=== PATIENT | female | born 1960 | race African-American/Black ===

== ENCOUNTER 2016-08-20 19:26 | Emergency (ER) | payer MEDICAID ==
[~2016-08-20] VITALS: Ht 160 cm; Wt 77.1 kg
[~2016-08-20 19:26] MED LIST: AMIT10TA6 PO; BACL20TA PO; COLC1TAB3 PO; COSO10 EACHEYE; GAB400C PO; GLIP-115 PO; HYDR-3546 OR; HYDR500T13 PO; INSUINJ37 SC; LANTAPROST EACHEYE; LISI-646 PO; LORA-622 PO; MET50T PO; PANT1INJ3 PO; SIMV-13 PO; SITA50TA PO; TRIATAB3 PO
[2016-08-20 20:44] LABS: Urine Bilirubin Negative (Negative); Urine Blood Negative /uL (Negative); Urine Color Yellow (Yellow); Urine Glucose Normal (Normal); Urine Hyaline Cast MOD /lpf (0 - 2); Urine Ketone Negative (Negative); Urine Mucus FEW (None Seen); Urine Nitrite Negative (Negative); Urine RBC 1 /hpf (0 - 4); Urine Squamous Epithelial Cell FEW /hpf (<5); Urine pH 5.5 (5.0-8.0)
[2016-08-21 03:33] LABS: Basophils # (auto) 0 uL; Basophils % (auto) 0.9 % (0.0-2.0); CONDITION AutoValidated; Eosinophils # (auto) 0.1 uL; Eosinophils % (auto) 1.9 % (0.0-7.0); Hematocrit 35.3 % (36.0-46.0); Hemoglobin 11.5 g/dL (12.2-16.2); Lymphocytes # (auto) 1.7 uL; Lymphocytes % (auto) 35.8 % (10.0-50.0); Mean Corpuscular Hemoglobin 27.1 pg (28.0-32.0); Mean Corpuscular Hgb Conc. 32.6 g/dL (32.0-36.0); Mean Corpuscular Volume 83.1 fL (80.0-100.0); Mean Platelet Volume 9.3 fL (7.4-10.4); Monocytes # (auto) 0.5 uL; Monocytes % (auto) 10.2 % (0.0-12.0); Neutrophils # (auto) 2.4 uL; Neutrophils % (auto) 51.2 % (37.0-80.0); Platelet Count (auto) 268 10^3/uL (140-450); Red Cell Distribution Width 13.5 % (11.6-16.0); White Blood Cell 4.7 10^3/uL (4.4-10.8)
[2016-08-21 03:53] LABS: Albumin 4.5 g/dL (3.4-5.0); BUN/Creatinine Ratio 19.5; Calcium 9.4 mg/dL (8.5-10.1); Potassium 4.2 mmol/L (3.5-5.1)
[2016-08-21 03:56] LABS: Bilirubin, Total 0.5 mg/dL (0.2-1.0); Total Protein 8.5 g/dL (6.4-8.2)
[2016-08-21] MEDS ORDERED: HYDROcodone-ACET 5/325MG TAB PO ONE (04:00)
[2016-08-21] MEDS ORDERED: cefTRIAXone 1GM/50ML D5W 50 ML IV ONE (04:00)
[2016-08-21] MEDS ORDERED: SODIUM CHLORIDE 0.9% 1,000 ML IV ONE (04:00)
[2016-08-21 06:13] VITALS: BP 119/84
== END 2016-08-21 06:17 | disposition home or self-care (01) ==
LOC: ER 19:26
DX: N12 Tubulo-interstitial nephritis, not specified as acute or chronic (principal); E11.9 Type 2 diabetes mellitus without complications; K21.9 Gastro-esophageal reflux disease without esophagitis; E78.5 Hyperlipidemia, unspecified; G89.29 Other chronic pain; M54.9 Dorsalgia, unspecified; I10 Essential (primary) hypertension; N83.209 Unspecified ovarian cyst, unspecified side; Z98.51 Tubal ligation status; Z79.899 Other long term (current) drug therapy; Z79.4 Long term (current) use of insulin
CPT/HCPCS: 36415; 74176; 80053; 81001; 82962; 85025; 96365; 96366; 99285; J0696; J7030

== ENCOUNTER 2016-10-13 15:29 | Emergency (ER) | payer MEDICAID ==
[~2016-10-13] VITALS: Ht 160 cm; Wt 74.8 kg
[2016-10-13 16:03] VITALS: BP 131/82
[2016-10-13] MEDS ORDERED: KETOROLAC TROMETH 60MG/2ML VIAL IM ONE (16:30)
[2016-10-13] MEDS ORDERED: METHOCARBAMOL 500 MG TAB PO ONE (16:30)
== END 2016-10-13 17:09 | disposition home or self-care (01) ==
LOC: ER 15:31
DX: G89.29 Other chronic pain (principal); M54.2 Cervicalgia; M54.5 Low back pain; E11.9 Type 2 diabetes mellitus without complications; K21.9 Gastro-esophageal reflux disease without esophagitis; E78.5 Hyperlipidemia, unspecified; I10 Essential (primary) hypertension; Z79.4 Long term (current) use of insulin; Z79.899 Other long term (current) drug therapy; Z98.51 Tubal ligation status
CPT/HCPCS: 96372; 99283; J1885

== ENCOUNTER 2017-03-05 11:05 | Emergency (ER) | payer MEDICAID ==
[~2017-03-05] VITALS: Ht 160 cm; Wt 74.8 kg
[2017-03-05 12:24] VITALS: BP 125/83
== END 2017-03-05 13:10 | disposition home or self-care (01) ==
LOC: ER 11:05
DX: J03.90 Acute tonsillitis, unspecified (principal); H66.93 Otitis media, unspecified, bilateral; E11.9 Type 2 diabetes mellitus without complications; I10 Essential (primary) hypertension; E78.5 Hyperlipidemia, unspecified; K21.9 Gastro-esophageal reflux disease without esophagitis; N83.299 Other ovarian cyst, unspecified side; Z98.51 Tubal ligation status; Z79.899 Other long term (current) drug therapy

== ENCOUNTER 2017-11-15 18:24 | Inpatient (IN) | payer MEDICAID ==
[~2017-11-15] VITALS: Ht 160 cm; Wt 77.1 kg
[2017-11-15 19:34] LABS: Basophils # (auto) 0.1 uL; Basophils % (auto) 1.3 % (0.0-2.0); Eosinophils # (auto) 0.1 uL; Eosinophils % (auto) 2.6 % (0.0-7.0); Hematocrit 35.8 % (36.0-46.0); Hemoglobin 11.7 g/dL (12.2-16.2); Lymphocytes # (auto) 1.7 uL; Lymphocytes % (auto) 39.7 % (10.0-50.0); Mean Corpuscular Hemoglobin 27.2 pg (28.0-32.0); Mean Corpuscular Hgb Conc. 32.6 g/dL (32.0-36.0); Mean Corpuscular Volume 83.4 fL (80.0-100.0); Monocytes # (auto) 0.5 uL; Monocytes % (auto) 11.6 % (0.0-12.0); Neutrophils % (auto) 44.8 % (37.0-80.0); Nucleated Red Blood Cells % 0.1 %; Platelet Count (auto) 236 10^3/uL (140-450); Red Blood Cells 4.29 10^6/uL (4.0-5.20); Red Cell Distribution Width 14.5 % (11.8-14.3); White Blood Cell 4.4 10^3/uL (4.4-10.8)
[2017-11-15 19:48] LABS: Alanine Aminotransferase 47 U/L (13-56); Albumin 4.1 g/dL (3.4-5.0); Anion Gap 8 (5-15); Aspartate Aminotransferase 21 U/L (15-37); BUN/Creatinine Ratio 16.9; Blood Urea Nitrogen 31 mg/dL (7-18); Calcium 8.7 mg/dL (8.5-10.1); Carbon Dioxide 23 mmol/L (21-32); Chloride 111 mmol/L (98-107); GFR African American 37 mL/min; GFR Non-African American 30 mL/min; Glucose 81 mg/dL (74-106); Potassium 4.3 mmol/L (3.5-5.1); Sodium 142 mmol/L (136-145)
[2017-11-15 19:53] LABS: Alkaline Phosphatase 102 U/L (45-117); Bilirubin, Total 0.5 mg/dL (0.2-1.0); Total Protein 8.2 g/dL (6.4-8.2)
[2017-11-15] MEDS ORDERED: ASPirin 81 mg TAB PO ONE (21:45)
[2017-11-16] MEDS ORDERED: NITROGLYCERIN 0.4 MG SL TAB SL ONE (00:30)
[2017-11-16] MEDS ORDERED: ONDANSETRON HCL 4 MG/2 ML VIAL IV ONE (00:30)
[2017-11-16] MEDS ORDERED: MORPHINE SULFATE 4 MG/ML SYR/VIAL IV ONE (00:30)
[2017-11-16] MEDS ORDERED: ACETAMINOPHEN 325 MG TAB PO PRN (03:15)
[2017-11-16] MEDS ORDERED: DEXTROSE (50%) 50ML SYRG IV PRN (03:15)
[2017-11-16] MEDS ORDERED: NITROGLYCERIN 0.4 MG SL TAB SL PRN (03:15)
[2017-11-16] MEDS ORDERED: ALUM & MAG HYDROX-SIMETH LIQ(MAALOX) 30 ML PO ONE (03:15)
[2017-11-16] MEDS ORDERED: ZOLPIDEM TARTRATE 5 MG TAB PO PRN (03:15)
[2017-11-16] MEDS ORDERED: LORazepam 0.5 MG TAB PO PRN (03:15)
[2017-11-16] MEDS ORDERED: ONDANSETRON HCL 4 MG/2 ML VIAL IV PRN (03:15)
[2017-11-16 05:00] VITALS: BP 111/68
[2017-11-16 05:02] VITALS: BP 111/68
[2017-11-16] MEDS: MORPHINE SULF INJ 2 MG/ML SYRINGE 1ML IV PRN ×3 (05:38→18:19)
[2017-11-16 05:54] LABS: Urine Bacteria FEW /hpf (None Seen); Urine Blood Negative /uL (Negative); Urine Specific Gravity 1.011 (1.001-1.035); Urine WBC 4 /hpf (0 - 5)
[2017-11-16] MEDS: ACCU-CHEK COMFORT CURVE STRIP VI SCH ×4 (06:43→21:43)
[2017-11-16] MEDS: InsuLIN REG 1unit/0.01ml Soln (100units/ml) SC SCH ×4 (06:44→21:43)
[2017-11-16] MEDS ORDERED: cefTRIAXone 1GM/10ml IVPUSH 10 ML IV ONE (07:00)
[2017-11-16 08:54] VITALS: BP 91/61
[2017-11-16] MEDS ORDERED: cefTRIAXone 1GM/10ml IVPUSH 10 ML IV SCH (09:00)
[2017-11-16 09:34] LABS: Basophils # (auto) 0.1 uL; Basophils % (auto) 1.3 % (0.0-2.0); Eosinophils # (auto) 0.1 uL; Hematocrit 34.4 % (36.0-46.0); Hemoglobin 11.1 g/dL (12.2-16.2); Lymphocytes # (auto) 2.2 uL; Lymphocytes % (auto) 47.4 % (10.0-50.0); Mean Corpuscular Hemoglobin 26.4 pg (28.0-32.0); Mean Corpuscular Hgb Conc. 32.2 g/dL (32.0-36.0); Mean Corpuscular Volume 82.1 fL (80.0-100.0); Monocytes # (auto) 0.5 uL; Monocytes % (auto) 10.5 % (0.0-12.0); Neutrophils # (auto) 1.8 uL; Neutrophils % (auto) 38.8 % (37.0-80.0); Nucleated Red Blood Cells % 0.1 %; Platelet Count (auto) 233 10^3/uL (140-450); Red Blood Cells 4.19 10^6/uL (4.0-5.20); Red Cell Distribution Width 14.2 % (11.8-14.3); White Blood Cell 4.7 10^3/uL (4.4-10.8)
[2017-11-16 09:51] LABS: Cholesterol 166 mg/dL (< 200); HDL Cholesterol 52 mg/dL (40-59); INR 1.03 (0.9-1.15); LDL Cholesterol 104 mg/dL (< 100); Partial Thromboplastin Time 23.1 sec (23.78-33.04); Triglycerides 187 mg/dL (< 150)
[2017-11-16] MEDS: LISINOPRIL 20 MG TAB PO SCH ×2 (10:00→21:43)
[2017-11-16] MEDS: ASPirin 81 mg TAB PO SCH (10:43)
[2017-11-16] MEDS: FAMOTIDINE 20 MG TAB PO SCH (10:43)
[2017-11-16 12:25] VITALS: BP 97/64
[2017-11-16 12:41] LABS: BUN/Creatinine Ratio 17.5; Calcium 9.1 mg/dL (8.5-10.1); Potassium 4.2 mmol/L (3.5-5.1)
[2017-11-16 17:56] VITALS: BP 99/71
[2017-11-16 22:00] VITALS: BP 96/62
[2017-11-16] MEDS ORDERED: ATORVASTATIN 20 MG TAB PO SCH (22:00)
[2017-11-17 05:00] VITALS: BP 106/63
[2017-11-17] MEDS: InsuLIN REG 1unit/0.01ml Soln (100units/ml) SC SCH ×3 (06:40→17:34)
[2017-11-17] MEDS: ACCU-CHEK COMFORT CURVE STRIP VI SCH ×3 (06:41→17:34)
[2017-11-17 07:58] VITALS: BP 105/75
[2017-11-17] MEDS ORDERED: ADENOSINE 65 MG in GIVE UN-DILUTED 0 ML IV STA (08:29)
[2017-11-17] MEDS ORDERED: cefTRIAXone 1GM/10ml IVPUSH 10 ML IV SCH (09:00)
[2017-11-17 10:38] VITALS: BP 116/74
[2017-11-17 11:57] VITALS: BP 127/84
[2017-11-17] MEDS: ASPirin 81 mg TAB PO SCH (12:31)
[2017-11-17] MEDS: LISINOPRIL 20 MG TAB PO SCH (12:35)
[2017-11-17] MEDS: FAMOTIDINE 20 MG TAB PO SCH (12:35)
[2017-11-17 17:00] VITALS: BP 103/66
[2017-11-17 18:28] VITALS: BP 103/66
== END 2017-11-17 19:40 | disposition home or self-care (01) | DRG 203 ==
LOC: ER 18:24 → TELE 18:25 → TELE-EAST 11-16 06:26
PROVIDERS: ADMIT Nurse Practitioner Family; ATTEND Internal Medicine Pulmonary Disease
DX: M94.0 Chondrocostal junction syndrome [Tietze] (principal); E11.22 Type 2 diabetes mellitus with diabetic chronic kidney disease; I13.0 Hypertensive heart and chronic kidney disease with heart failure and stage 1 through stage 4 chronic kidney disease, or unspecified chronic kidney disease; I50.9 Heart failure, unspecified; K21.9 Gastro-esophageal reflux disease without esophagitis; N30.00 Acute cystitis without hematuria; D64.9 Anemia, unspecified; N18.9 Chronic kidney disease, unspecified; E66.9 Obesity, unspecified; F32.9 Major depressive disorder, single episode, unspecified; E78.5 Hyperlipidemia, unspecified; Z83.3 Family history of diabetes mellitus; Z68.30 Body mass index [BMI] 30.0-30.9, adult; Z72.0 Tobacco use; Z82.49 Family history of ischemic heart disease and other diseases of the circulatory system
CPT/HCPCS: 36415; 71046; 78452; 80048; 80053; 80061; 81001; 82962; 83036; 83735; 84484; 85025; 85379; 85610; 85730; 87086; 93005; 93017; 94761; 96374; 96375; J0153; J0696; J1815; J2405

== ENCOUNTER 2017-12-06 21:44 | Emergency (ER) | payer MEDICAID ==
[~2017-12-06] VITALS: Ht 160 cm; Wt 81.6 kg
[2017-12-06 22:00] VITALS: BP 109/70
[2017-12-06 23:47] LABS: Basophils # (auto) 0.1 uL; Basophils % (auto) 0.9 % (0.0-2.0); Eosinophils # (auto) 0.2 uL; Eosinophils % (auto) 3.1 % (0.0-7.0); Hematocrit 34.7 % (36.0-46.0); Hemoglobin 11.3 g/dL (12.2-16.2); Lymphocytes # (auto) 2.3 uL; Lymphocytes % (auto) 41.9 % (10.0-50.0); Mean Corpuscular Hgb Conc. 32.6 g/dL (32.0-36.0); Mean Corpuscular Volume 82.9 fL (80.0-100.0); Monocytes # (auto) 0.6 uL; Monocytes % (auto) 10.9 % (0.0-12.0); Neutrophils # (auto) 2.4 uL; Neutrophils % (auto) 43.2 % (37.0-80.0); Nucleated Red Blood Cells % 0.1 %; Platelet Count (auto) 253 10^3/uL (140-450); Red Blood Cells 4.19 10^6/uL (4.0-5.20); Red Cell Distribution Width 14.3 % (11.8-14.3); White Blood Cell 5.6 10^3/uL (4.4-10.8)
[2017-12-07 00:01] LABS: Alanine Aminotransferase 46 U/L (13-56); Albumin 4.1 g/dL (3.4-5.0); Anion Gap 7 (5-15); Aspartate Aminotransferase 21 U/L (15-37); BUN/Creatinine Ratio 17.7; Blood Urea Nitrogen 29 mg/dL (7-18); Calcium 8.6 mg/dL (8.5-10.1); Carbon Dioxide 23 mmol/L (21-32); Chloride 108 mmol/L (98-107); GFR African American 42 mL/min; GFR Non-African American 35 mL/min; Glucose 100 mg/dL (74-106); Magnesium 2.1 mg/dL (1.6-2.6); Potassium 4.6 mmol/L (3.5-5.1); Sodium 138 mmol/L (136-145)
[2017-12-07 00:06] LABS: Alkaline Phosphatase 107 U/L (45-117); Bilirubin, Total 0.5 mg/dL (0.2-1.0); Total Protein 8.1 g/dL (6.4-8.2)
[2017-12-07] MEDS ORDERED: cefTRIAXone SOD 1,000 MG VL IM ONE (03:45)
== END 2017-12-07 05:00 | disposition home or self-care (01) ==
LOC: ER 21:44
DX: J32.9 Chronic sinusitis, unspecified (principal); E11.9 Type 2 diabetes mellitus without complications; K21.9 Gastro-esophageal reflux disease without esophagitis; E78.5 Hyperlipidemia, unspecified; I10 Essential (primary) hypertension; Z79.4 Long term (current) use of insulin; Z79.899 Other long term (current) drug therapy
CPT/HCPCS: 36415; 71046; 80053; 83735; 84484; 85025; 96372; 99285; J0696

== ENCOUNTER 2018-04-05 13:48 | Emergency (ER) | payer MEDICAID ==
[~2018-04-05] VITALS: Ht 160 cm; Wt 70.3 kg
[2018-04-05 14:38] LABS: Basophils # (auto) 0 uL; Eosinophils # (auto) 0.1 uL; Hemoglobin 11.9 g/dL (12.2-16.2); Monocytes # (auto) 0.4 uL; Monocytes % (auto) 7.9 % (0.0-12.0); Neutrophils # (auto) 2.6 uL; White Blood Cell 4.8 10^3/uL (4.4-10.8)
[2018-04-05 14:41] LABS: Basophils % (auto) 0.7 % (0.0-2.0); Eosinophils % (auto) 2.2 % (0.0-7.0); Hematocrit 36.3 % (36.0-46.0); Lymphocytes # (auto) 1.7 uL; Mean Corpuscular Hemoglobin 27.1 pg (28.0-32.0); Mean Corpuscular Hgb Conc. 32.7 g/dL (32.0-36.0); Mean Corpuscular Volume 82.8 fL (80.0-100.0); Neutrophils % (auto) 54.2 % (37.0-80.0); Nucleated Red Blood Cells % 0.1 %; Platelet Count (auto) 227 10^3/uL (140-450); Red Blood Cells 4.39 10^6/uL (4.0-5.20); Red Cell Distribution Width 14.5 % (11.8-14.3)
[2018-04-05 14:59] LABS: Chloride 105 mmol/L (98-107); Potassium 3.9 mmol/L (3.5-5.1); Sodium 138 mmol/L (136-145)
[2018-04-05 15:09] LABS: Alanine Aminotransferase 48 U/L (13-56); Albumin 4.5 g/dL (3.4-5.0); Alkaline Phosphatase 86 U/L (45-117); Anion Gap 4 (5-15); Aspartate Aminotransferase 25 U/L (15-37); BUN/Creatinine Ratio 14.8; Bilirubin, Total 0.7 mg/dL (0.2-1.0); Blood Urea Nitrogen 20 mg/dL (7-18); Calcium 9.3 mg/dL (8.5-10.1); Carbon Dioxide 29 mmol/L (21-32); GFR African American 52 mL/min; GFR Non-African American 43 mL/min; Glucose 92 mg/dL (74-106); Magnesium 2.3 mg/dL (1.6-2.6); Total Protein 8.2 g/dL (6.4-8.2)
[2018-04-05] MEDS ORDERED: cefTRIAXone SOD 1,000 MG VL ONE (20:39)
[2018-04-05] MEDS ORDERED: LIDOCAINE 2% (LOCAL ANESTH.) PF 5ml SDV ONE (20:39)
[2018-04-05] MEDS ORDERED: KETOROLAC TROMETH 60MG/2ML VIAL IM ONE (20:45)
[2018-04-05] MEDS ORDERED: cefTRIAXone W LIDOCAINE 1 GM IM IM ONE (20:45)
[2018-04-05 22:00] VITALS: BP 126/82
== END 2018-04-05 23:02 | disposition home or self-care (01) ==
LOC: ER 13:49
DX: R07.81 Pleurodynia (principal); J20.9 Acute bronchitis, unspecified; E11.9 Type 2 diabetes mellitus without complications; K21.9 Gastro-esophageal reflux disease without esophagitis; E78.5 Hyperlipidemia, unspecified; I10 Essential (primary) hypertension; M10.9 Gout, unspecified; Z98.51 Tubal ligation status
CPT/HCPCS: 36415; 71046; 80053; 82962; 83735; 84484; 85025; 85379; 93005; 96372; 99284; J0696; J1885; J2001

== ENCOUNTER 2019-03-17 16:34 | Emergency (ER) | payer MEDICAID ==
[~2019-03-17] VITALS: Ht 165.1 cm; Wt 70.3 kg
[~2019-03-17 16:34] MED LIST changes: -GLIP-115 PO; +GLIP5TAB12 PO; -HYDR-3546 OR; +HYDR-3547 OR
[2019-03-17 17:02] VITALS: BP 113/69
[2019-03-17] MEDS ORDERED: IPRATROPIUM BROM 0.5 MG/2.5ML INH SOL NEB ONE (18:00)
[2019-03-17] MEDS ORDERED: methylPREDNISolone SOD SUCC 125 MG/2 ML VL IM ONE (18:00)
[2019-03-17] MEDS ORDERED: cefTRIAXone SOD 1,000 MG VL IM ONE (18:00)
[2019-03-17] MEDS ORDERED: ALBUTEROL SULF 2.5 MG/0.5ML(0.5%) NEB SOLN NEB ONE (18:00)
== END 2019-03-17 18:21 | disposition home or self-care (01) ==
LOC: ER 16:34
DX: J45.909 Unspecified asthma, uncomplicated (principal); J03.90 Acute tonsillitis, unspecified; H66.91 Otitis media, unspecified, right ear; E11.9 Type 2 diabetes mellitus without complications; K21.9 Gastro-esophageal reflux disease without esophagitis; E78.5 Hyperlipidemia, unspecified; I10 Essential (primary) hypertension; Z98.51 Tubal ligation status
CPT/HCPCS: 71046; 93005; 94640; 96372; 99283; J0696; J2930; J7611; J7644

== ENCOUNTER 2019-04-11 13:34 | Emergency (ER) | payer MEDICAID ==
[~2019-04-11] VITALS: Ht 165.1 cm; Wt 70.3 kg
[2019-04-11 14:03] VITALS: BP 147/96
== END 2019-04-11 14:51 | disposition home or self-care (01) ==
LOC: ER 13:34
DX: R94.31 Abnormal electrocardiogram [ECG] [EKG] (principal); J45.909 Unspecified asthma, uncomplicated; E11.9 Type 2 diabetes mellitus without complications; E78.5 Hyperlipidemia, unspecified; I10 Essential (primary) hypertension; Z79.899 Other long term (current) drug therapy
CPT/HCPCS: 93005

== ENCOUNTER 2020-03-05 06:33 | Emergency (ER) | payer MEDICAID ==
[~2020-03-05] VITALS: Ht 160 cm; Wt 70.3 kg
[2020-03-05 07:08] VITALS: BP 170/95
[2020-03-05] MEDS ORDERED: ONDANSETRON ODT 4 MG TAB PO ONE (08:15)
[2020-03-05] MEDS ORDERED: traMADol HCL 50 MG TAB PO ONE (08:15)
[2020-03-05 10:01] LABS: Basophils # (auto) 0 10 ^3/uL (0-0.2); Basophils % (auto) 0.8 % (0.0-2.0); Eosinophils # (auto) 0.2 10 ^3/uL (0-0.8); Eosinophils % (auto) 2.5 % (0.0-7.0); Hematocrit 34.9 % (36.0-46.0); Hemoglobin 11.5 g/dL (12.2-16.2); Lymphocytes # (auto) 2.4 10 ^3/uL (0.4-5.4); Lymphocytes % (auto) 39.8 % (10.0-50.0); Mean Corpuscular Hemoglobin 27.4 pg (28.0-32.0); Monocytes # (auto) 0.5 10 ^3/uL (0-1.3); Monocytes % (auto) 8.8 % (0.0-12.0); Neutrophils # (auto) 2.9 10 ^3/uL (1.6-8.6); Neutrophils % (auto) 48.1 % (37.0-80.0); Nucleated Red Blood Cells % 0.1 %; Platelet Count (auto) 261 10^3/uL (140-450); Red Blood Cells 4.21 10^6/uL (4.0-5.20); Red Cell Distribution Width 14.3 % (11.8-14.3); White Blood Cell 6.1 10^3/uL (4.4-10.8)
[2020-03-05 10:15] LABS: Urine Amorphous Crystal FEW /hpf (None Seen); Urine Bacteria NONE SEEN /hpf (None Seen); Urine Blood Negative /uL (Negative); Urine Mucus FEW (None Seen); Urine WBC 1 /hpf (0 - 5)
[2020-03-05 10:23] LABS: Albumin 3.8 g/dL (3.4-5.0); Calcium 8.9 mg/dL (8.5-10.1); Potassium 3.7 mmol/L (3.5-5.1)
[2020-03-05 10:33] LABS: Bilirubin, Total 0.8 mg/dL (0.2-1.0); Total Protein 7.5 g/dL (6.4-8.2)
== END 2020-03-05 11:37 | disposition home or self-care (01) ==
LOC: ER 06:33
DX: R33.9 Retention of urine, unspecified (principal); N39.0 Urinary tract infection, site not specified; I10 Essential (primary) hypertension; E78.5 Hyperlipidemia, unspecified; E11.9 Type 2 diabetes mellitus without complications; Z79.899 Other long term (current) drug therapy
CPT/HCPCS: 36415; 51702; 74176; 80053; 81001; 85025; 99284; J7030; Q0162

== ENCOUNTER 2021-12-26 11:54 | Emergency (ER) | payer MEDICAID ==
[~2021-12-26] VITALS: Ht 160 cm; Wt 70.5 kg
[~2021-12-26 11:54] MED LIST changes: -AMIT10TA6 PO; +AMIT1TAB34 PO; -LISI-646 PO; +LISI20TA28 PO
[2021-12-26] MEDS ORDERED: ONDANSETRON HCL 4 MG/2 ML VIAL IM ONE (12:00)
[2021-12-26 12:41] LABS: Basophils % (auto) 0.9 % (0.0-2.0); Mean Corpuscular Hgb Conc. 32.4 g/dL (32.0-36.0); Monocytes # (auto) 0.5 10 ^3/uL (0-1.3); Nucleated Red Blood Cells % 0.1 %; Red Cell Distribution Width 14.5 % (11.8-14.3); White Blood Cell 5.4 10^3/uL (4.4-10.8)
[2021-12-26 12:43] LABS: Basophils # (auto) 0.1 10 ^3/uL (0-0.2); Eosinophils # (auto) 0.2 10 ^3/uL (0-0.8); Eosinophils % (auto) 2.8 % (0.0-7.0); Hematocrit 42.2 % (36.0-46.0); Hemoglobin 13.7 g/dL (12.2-16.2); Lymphocytes # (auto) 1.8 10 ^3/uL (0.4-5.4); Lymphocytes % (auto) 33.7 % (10.0-50.0); Mean Corpuscular Volume 83.3 fL (80.0-100.0); Monocytes % (auto) 8.6 % (0.0-12.0); Neutrophils # (auto) 2.9 10 ^3/uL (1.6-8.6); Red Blood Cells 5.07 10^6/uL (4.0-5.20)
[2021-12-26 13:02] LABS: Albumin 3.8 g/dL (3.4-5.0); Calcium 9.2 mg/dL (8.5-10.1); Potassium 4.2 mmol/L (3.5-5.1)
[2021-12-26 13:06] LABS: BUN/Creatinine Ratio 25.4; Bilirubin, Total 1.1 mg/dL (0.2-1.0)
[2021-12-26] MEDS ORDERED: LIDOCAINE VISCOUS 2% 15ML UD PO ONE (13:15)
[2021-12-26] MEDS ORDERED: ALUM & MAG HYDROX-SIMETH LIQ(MAALOX) 30 ML PO ONE (13:15)
[2021-12-26] MEDS ORDERED: DONNATAL 5ml ORAL Elix (BELLADONNA ALK-PHENOBARB) PO ONE (13:15)
[2021-12-26 13:18] VITALS: BP 121/90
[2021-12-26 14:17] LABS: Urine Bacteria NONE SEEN /hpf (None Seen); Urine Blood Negative /uL (Negative); Urine Specific Gravity 1.012 (1.001-1.035); Urine WBC 3 /hpf (0 - 5)
[2021-12-26] MEDS ORDERED: cefTRIAXone SOD 1,000 MG VL IM ONE (15:15)
== END 2021-12-26 16:50 | disposition home or self-care (01) ==
LOC: ER 12:02
DX: K29.70 Gastritis, unspecified, without bleeding (principal); N39.0 Urinary tract infection, site not specified; I10 Essential (primary) hypertension; E11.9 Type 2 diabetes mellitus without complications; E78.5 Hyperlipidemia, unspecified; J45.909 Unspecified asthma, uncomplicated; Z79.4 Long term (current) use of insulin; Z79.899 Other long term (current) drug therapy
CPT/HCPCS: 36415; 74176; 80053; 81001; 84484; 85025; 96372; 99284; J0696; J2405